=== PATIENT | male | born 1955 | race Caucasian/White ===

== ENCOUNTER 2017-06-29 11:12 | Emergency (ER) | payer MEDICARE ==
[~2017-06-29] VITALS: Ht 180.3 cm; Wt 127.6 kg
[2017-06-29 11:16] VITALS: BP 167/74; PULSE 76; RESP 16; TEMP 98.1; O2SAT 94
[2017-06-29] MEDS ORDERED: HYDROmorphone HCL PF 1 MG/ML VIAL IV PUSH ONE (11:30)
[2017-06-29] MEDS ORDERED: ONDANSETRON HCL 4 MG/2 ML VIAL IV PUSH ONE (11:30)
[2017-06-29] MEDS ORDERED: SODIUM CHLOR 0.9% 1000 ML INJ 1,000 ML IV SCH (11:30)
--- NOTE | 2017-06-29 11:34 | PD ---
HPI Chief Complaint: Abdominal Pain Time Seen by Provider: 11:27 Travel History International Travel<30 days: No Contact w/Intl Traveler<30days: No Traveled to known affect area: No History of Present Illness HPI This 62-year-old male is complaining of right upper quadrant pain. The pain is having is aggravated by coughing. He has been having paroxysms of cough. She does smoke cigarettes and 4 days ago he noted Chantix to try to stop smoking. The pain is having is aggravated by coughing. It does not appear affected by eating. There is been no fever or chills. He had pneumonia a year ago. He has been told that he has COPD. PFSH Past Medical History Cardiovascular Problems: Yes (htn on meds) Diabetes: Yes (type 2) Respiratory: Yes (copd) Social History Tobacco Use: No Allergies-Medications (Allergen,Severity, Reaction): Coded Allergies: No Known Allergies (Unverified , 06/29/17) Reported Meds & Prescriptions Reported Meds & Active Scripts Active Reported Chantix (Varenicline) 0.5 Mg Tab 0.5 Mg PO DAILY Days 1-3 Losartan (Losartan Potassium) 50 Mg Tab 50 Mg PO DAILY Simvastatin 40 Mg Tab 40 Mg PO HS Amlodipine (Amlodipine Besylate) 10 Mg Tab 10 Mg PO DAILY Fenofibrate 50 Mg Cap 50 Mg PO DAILY Meloxicam 7.5 Mg Tab 7.5 Mg PO DAILY Metformin (Metformin HCl) 1,000 Mg Tab 1,000 Mg PO BIDPC Review of Systems General / Constitutional: No: Fever, Chills Eyes: No: Diploplia, Blurred Vision HENT: No: Headaches, Vertigo Cardiovascular: Positive: Chest Pain or Discomfort, No: Edema Respiratory: Positive: Cough Gastrointestinal: No: Vomiting, Diarrhea Genitourinary: No: Urgency, Frequency Musculoskeletal: No: Myalgias, Arthralgias Skin: No Rash Neurologic: No: Weakness Psychiatric: No: Anxiety Hematologic/Lymphatic: No: Easy Bruising Physical Exam Narrative GENERAL: Well-developed male SKIN: Focused skin assessment warm/dry. HEAD: Atraumatic. Normocephalic. EYES: Pupils equal and round. No scleral icterus. No injection or drainage. ENT: No nasal bleeding or discharge. Mucous membranes pink and moist. NECK: Trachea midline. No JVD. CARDIOVASCULAR: Regular rate and rhythm. No murmur appreciated. RESPIRATORY: No accessory muscle use. Occasional rhonchi Breath sounds equal bilaterally. Some right-sided rib tenderness anterior axillary line GASTROINTESTINAL: Abdomen soft, non-tender, nondistended. Hepatic and splenic margins not palpable. MUSCULOSKELETAL: No obvious deformities. No clubbing. No cyanosis. No edema. NEUROLOGICAL: Awake and alert. No obvious cranial nerve deficits. Motor grossly within normal limits. Normal speech. PSYCHIATRIC: Appropriate mood and affect; insight and judgment normal. Data Data Last Documented VS Vital Signs Date Time Temp Pulse Resp B/P (MAP) Pulse Ox O2 Delivery O2 Flow Rate FiO2 06/29/17 11:16 98.1 76 16 167/74 (105) 94 Orders Orders Complete Blood Count With Diff (06/29/17 11:27) Comprehensive Metabolic Panel (06/29/17 11:27) Sodium Chlor 0.9% 1000 Ml Inj (Ns 1000 M (06/29/17 11:30) Ondansetron Inj (Zofran Inj) (06/29/17 11:30) Hydromorphone Pf Inj (Dilaudid Pf Inj) (06/29/17 11:30) Ribs, Uni (W/Exp Cxr-Min 3vw) (06/29/17 11:29) Labs Laboratory Tests Test 06/29/17 11:41 White Blood Count 9.9 TH/MM3 Red Blood Count 5.16 MIL/MM3 Hemoglobin 14.5 GM/DL Hematocrit 43.8 % Mean Corpuscular Volume 84.9 FL Mean Corpuscular Hemoglobin 28.2 PG Mean Corpuscular Hemoglobin Concent 33.2 % Red Cell Distribution Width 12.6 % Platelet Count 258 TH/MM3 Mean Platelet Volume 9.5 FL Neutrophils (%) (Auto) 65.3 % Lymphocytes (%) (Auto) 20.8 % Monocytes (%) (Auto) 7.7 % Eosinophils (%) (Auto) 1.4 % Basophils (%) (Auto) 4.8 % Neutrophils # (Auto) 6.4 TH/MM3 Lymphocytes # (Auto) 2.1 TH/MM3 Monocytes # (Auto) 0.8 TH/MM3 Eosinophils # (Auto) 0.1 TH/MM3 Basophils # (Auto) 0.5 TH/MM3 CBC Comment DIFF FINAL Differential Comment Blood Urea Nitrogen 19 MG/DL Creatinine 1.00 MG/DL Random Glucose 158 MG/DL Total Protein 7.3 GM/DL Albumin 3.9 GM/DL Calcium Level 9.3 MG/DL Alkaline Phosphatase 87 U/L Aspartate Amino Transf (AST/SGOT) 15 U/L Alanine Aminotransferase (ALT/SGPT) 38 U/L Total Bilirubin 0.2 MG/DL Sodium Level 136 MEQ/L Potassium Level 4.1 MEQ/L Chloride Level 100 MEQ/L Carbon Dioxide Level 29.9 MEQ/L Anion Gap 6 MEQ/L Estimat Glomerular Filtration Rate 76 ML/MIN [facility] Medical Decision Making Medical Screen Exam Complete: Yes Emergency Medical Condition: Yes Medical Record Reviewed: Yes Differential Diagnosis Differential includes chest wall pain, pneumonia, pneumothorax, rib fracture Narrative Course X-ray shows fractures of the left 12th ribs. There is no infiltrate or pneumothorax. Lab work is unremarkable with exception of glucose of 158. Patient is known to have type 2 diabetes Diagnosis Primary Impression: Fracture of ribs, two Scripts Hydrocodone/Acetaminophen (Hydrocodone-Acetamin 7.5-325) 7.5 Mg-325 Mg Tablet 1 TAB PO Q4-6H for Pain, #30 Prov: Farhat Vincent MD 06/29/17 Disposition: 01 DISCHARGE HOME Condition: Stable Farhat Vincent MD Jun 29, 2017 11:34
[2017-06-29] MEDS ORDERED: VARE.5 PO (11:36)
[2017-06-29] MEDS ORDERED: LOSA50TA PO (11:36)
[2017-06-29] MEDS ORDERED: MELO7.5T27 PO (11:36)
[2017-06-29] MEDS ORDERED: FENO2.5C PO (11:36)
[2017-06-29] MEDS ORDERED: METF1000 PO (11:36)
[2017-06-29] MEDS ORDERED: SIMV40TA PO (11:36)
[2017-06-29] MEDS ORDERED: AMLO10TA2 PO (11:36)
[2017-06-29 12:04] LABS: AUTOMATED NEUTROPHIL # 6.4 TH/MM3 (1.8-7.7); BASOPHIL # 0.5 TH/MM3 (0-0.2); BASOPHIL % 4.8 % (0.0-2.0); EOSINOPHIL # 0.1 TH/MM3 (0-0.4); EOSINOPHIL % 1.4 % (0.0-4.0); HEMATOCRIT 43.8 % (39.0-51.0); HEMO FLAGS DIFF FINAL; LYMPH % 20.8 % (9.0-44.0); LYMPHOCYTE # 2.1 TH/MM3 (1.0-4.8); MEAN CELL VOLUME 84.9 FL (80.0-100.0); MEAN CORPUSCULAR HEMOGLOBIN 28.2 PG (27.0-34.0); MEAN CORPUSCULAR HGB CONC 33.2 % (32.0-36.0); MONO % 7.7 % (0.0-8.0); NEUT % 65.3 % (16.0-70.0); PLATELET COUNT 258 TH/MM3 (150-450); RED BLOOD COUNT 5.16 MIL/MM3 (4.50-5.90); RED CELL DISTRIBUTION WIDTH 12.6 % (11.6-17.2); WHITE BLOOD COUNT 9.9 TH/MM3 (4.0-11.0)
--- NOTE | 2017-06-29 12:10 | RADRPT ---
EXAM DATE/TIME: 06/29/2017 11:46 [place] COMPARISON: No previous studies available for comparison. INDICATIONS : Right lower rib pain. Patient did state he had been moving & his dog has jumped up on him as well. MEDICAL HISTORY : Diabetes mellitus type II. Hypercholesterolemia. Chronic obstructive pulmonary disease. Hypertens ion. Arthritis.Smoker. SURGICAL HISTORY : None. ENCOUNTER: Initial ACUITY: 4 - 6 days PAIN SCORE: 5/10 LOCATION: Right lower chest/ribs FINDINGS: Multiple views of the right ribs were performed. There are fractures of the anterolateral 12th and 1 1th ribs. No destructive lesions or areas of periosteal thickening are seen. Expiratory view of the chest is negative for pneumothorax. The mediastinal structures are midline. CONCLUSION: Fractures of the 11th 12th ribs. Miky Liang MD on June 29, 2017 at 12:07 Board Certified Radiologist. This report was verified electronically.
[2017-06-29 12:11] LABS: CHLORIDE 100 MEQ/L (98-107); POTASSIUM 4.1 MEQ/L (3.5-5.1); SODIUM (NA) 136 MEQ/L (136-145)
[2017-06-29 12:15] LABS: ANION GAP 6 MEQ/L (5-15); BICARBONATE 29.9 MEQ/L (21.0-32.0); BLOOD UREA NITROGEN 19 MG/DL (7-18)
[2017-06-29 12:18] LABS: ALT (GPT) 38 U/L (12-78); AST (GOT) 15 U/L (15-37); GLOMERULAR FILTRATION RATE 76 ML/MIN (>89)
[2017-06-29 12:20] LABS: TOTAL BILIRUBIN ADULT 0.2 MG/DL (0.2-1.0)
[2017-06-29 12:21] LABS: ALKALINE PHOSPHATASE 87 U/L (45-117)
[2017-06-29] MEDS ORDERED: HYDR-3580 PO (12:25)
== END 2017-06-29 12:36 | disposition home or self-care (01) ==
LOC: PHED 11:12
DX: S22.41XA Multiple fractures of ribs, right side, initial encounter for closed fracture (principal); F17.210 Nicotine dependence, cigarettes, uncomplicated; I10 Essential (primary) hypertension; E11.9 Type 2 diabetes mellitus without complications; X58.XXXA Exposure to other specified factors, initial encounter; Z79.84 Long term (current) use of oral hypoglycemic drugs
CPT/HCPCS: 71101; 80053; 85025; 96374; 96375; 99284; J1170; J2405; J7030